=== PATIENT | male | born 1940 | race Caucasian/White ===

== ENCOUNTER → 2016-12-24 | Outpatient (CLI) | payer MEDICARE, BC ==
[~2016-12-24] MED LIST: APIX5TAB PO; ATOR10TA PO; BUPR100T11 PO; BUPR200T2 PO; BUPROPION PO; CAND8TAB PO; GLIP10TA13 PO; INSU100V8 SQ; METF500T4 PO; METO25TA35 PO
[2016-12-24 08:04] LABS: ASPARTATE AMINO TRANSFERASE 17 U/L (15-37); BLOOD UREA NITROGEN 20 mg/dL (7-18)
[2016-12-24 08:11] LABS: PROSTATE SPECIFIC ANTIGEN 0.58 ng/mL (0.00-4.00)
== END | disposition home or self-care (01) ==
LOC: LAB 07:34
PROVIDERS: ATTEND Family Medicine
DX: Z12.5 Encounter for screening for malignant neoplasm of prostate (principal); E11.9 Type 2 diabetes mellitus without complications; E78.00 Pure hypercholesterolemia, unspecified; I10 Essential (primary) hypertension
CPT/HCPCS: 36415; 80053; 80061; 84153

== ENCOUNTER → 2018-11-09 | Outpatient (CLI) | payer MEDICARE, BC ==
[~2018-11-09] MED LIST changes: -CAND8TAB PO; +CAND8TAB10 PO; +METF500T17 PO; -METF500T4 PO
== END | disposition home or self-care (01) ==
LOC: CVU 08:28
PROVIDERS: ATTEND Internal Medicine Cardiovascular Disease
DX: I08.0 Rheumatic disorders of both mitral and aortic valves (principal); E11.9 Type 2 diabetes mellitus without complications; I48.0 Paroxysmal atrial fibrillation; I11.9 Hypertensive heart disease without heart failure
CPT/HCPCS: 93306

== ENCOUNTER 2019-12-18 10:10 | Day surgery (SDC) | payer MEDICARE, BC ==
[~2019-12-18] VITALS: Ht 182.9 cm; Wt 85.9 kg
[2019-12-18 10:40] VITALS: BP 135/78
[2019-12-18 11:08] LABS: BASOPHILS # (AUTO) 0.03 x10^3/uL (0-0.1); BASOPHILS % (AUTO) 1 % (0-1); EOSINOPHILS # (AUTO) 0.17 x10^3/uL (0-0.4); EOSINOPHILS % (AUTO) 3 % (1-7); LYMPHOCYTES # (AUTO) 1.99 x10^3/uL (1-3.4); LYMPHOCYTES % (AUTO) 31 % (22-44); MD NO; MEAN CORPUSCULAR HEMOGLOBIN 29.3 pg (27.5-34.5); MEAN CORPUSCULAR HGB CONC 32.9 g/dL (33.2-36.2); MEAN CORPUSCULAR VOLUME 89.1 fL (81-97); MEAN PLATELET VOLUME 7.5 fL (7.4-10.4); MONOCYTES # (AUTO) 0.48 x10^3/uL (0.2-0.8); MONOCYTES % (AUTO) 7 % (2-9); NEUTROPHILS # (AUTO) 3.83 x10^3/uL (1.8-6.8); NEUTROPHILS % (AUTO) 59 % (42-75); PLATELET COUNT 220 x10^3/uL (130-400); RED BLOOD COUNT 4.85 x10^6/uL (4.38-5.82); RED CELL DISTRIBUTION WIDTH 14.1 % (9.4-14.8)
[2019-12-18 11:13] LABS: ANION GAP 6 mmol/L (5-15); CALCIUM 8.9 mg/dL (8.5-10.1); CHLORIDE 108 mmol/L (98-107); CREATININE 1.03 mg/dL (0.7-1.3)
[2019-12-18] MEDS ORDERED: TADA5TAB13 PO (11:14)
[2019-12-18] MEDS ORDERED: AREDS 2 PO (11:14)
[2019-12-18] MEDS ORDERED: B CO1CAP5 PO (11:14)
[2019-12-18] MEDS ORDERED: MULT-717 PO (11:14)
[2019-12-18] MEDS ORDERED: UBID100C41 PO (11:14)
[2019-12-18] MEDS ORDERED: DILT240C77 PO (11:14)
[2019-12-18] MEDS ORDERED: LOSA50TA14 PO (11:14)
[2019-12-18] MEDS ORDERED: PROPOFOL 10 MG/ML, 20ML ONE (12:01)
== END 2019-12-18 14:17 | disposition home or self-care (01) ==
LOC: CACL 10:10
PROVIDERS: ATTEND Internal Medicine Cardiovascular Disease
DX: I48.92 Unspecified atrial flutter (principal); I48.0 Paroxysmal atrial fibrillation; I10 Essential (primary) hypertension; E11.9 Type 2 diabetes mellitus without complications; E78.2 Mixed hyperlipidemia; Z79.4 Long term (current) use of insulin; Z72.89 Other problems related to lifestyle; Z87.891 Personal history of nicotine dependence; Z79.899 Other long term (current) drug therapy; Z79.01 Long term (current) use of anticoagulants; Z98.890 Other specified postprocedural states
CPT/HCPCS: 36415; 80048; 85025; 92960; J2704

== ENCOUNTER 2020-01-10 06:02 | Observation (INO) | payer MEDICARE, BC ==
[~2020-01-10] VITALS: Ht 185.4 cm; Wt 86.5 kg
[~2020-01-10 06:02] MED LIST changes: +AREDS 2 PO; +B CO1CAP5 PO; +DILT240C77 PO; +LOSA50TA14 PO; +MULT-717 PO; +TADA5TAB13 PO; +UBID100C41 PO
[2020-01-10] MEDS ORDERED: SODIUM CHLORIDE 0.9% 1,000 ML IV SCH (06:19)
[2020-01-10] MEDS ORDERED: CEFAZOLIN PMX 1GM/50ML 50 ML IVPB ONE (06:30)
[2020-01-10 06:32] VITALS: BP 147/89
[2020-01-10] MEDS ORDERED: MIDAZOLAM 1 MG/ML, 5ML ONE (07:11)
[2020-01-10] MEDS ORDERED: LIDOCAINE 1%, 20ML ONE (07:12)
[2020-01-10] MEDS ORDERED: CEFAZOLIN PMX 1GM/50ML 50 ML ONE (07:12)
[2020-01-10] MEDS ORDERED: FENTANYL PF 250 MCG/5ML ONE (07:12)
[2020-01-10] MEDS ORDERED: CEFAZOLIN 1,000 MG ONE (07:12)
[2020-01-10 07:20] LABS: BASOPHILS # (AUTO) 0.04 x10^3/uL (0-0.1); BASOPHILS % (AUTO) 1 % (0-1); EOSINOPHILS % (AUTO) 3 % (1-7); LYMPHOCYTES # (AUTO) 2.17 x10^3/uL (1-3.4); LYMPHOCYTES % (AUTO) 37 % (22-44); MD NO; MEAN CORPUSCULAR HGB CONC 32.7 g/dL (33.2-36.2); MEAN CORPUSCULAR VOLUME 88.6 fL (81-97); MEAN PLATELET VOLUME 7.5 fL (7.4-10.4); MONOCYTES % (AUTO) 7 % (2-9); NEUTROPHILS # (AUTO) 3.06 x10^3/uL (1.8-6.8); NEUTROPHILS % (AUTO) 52 % (42-75); PLATELET COUNT 202 x10^3/uL (130-400); RED CELL DISTRIBUTION WIDTH 14.4 % (9.4-14.8)
[2020-01-10 07:28] LABS: ANION GAP 7 mmol/L (5-15); CALCIUM 8.7 mg/dL (8.5-10.1); CHLORIDE 107 mmol/L (98-107); CREATININE 0.92 mg/dL (0.7-1.3)
[2020-01-10] MEDS ORDERED: LIDOCAINE 2%, 20ML ONE (07:47)
[2020-01-10] MEDS ORDERED: [UNRECOGNIZED DRUG - REMARK] MC PRN (09:00)
[2020-01-10] MEDS: SODIUM CHLORIDE FLUSH 10ML SYR IVF SCH ×2 (09:00→19:56)
[2020-01-10 12:49] VITALS: BP 157/80
[2020-01-10] MEDS ORDERED: ONDANSETRON ODT 4 MG PO PRN (13:00)
[2020-01-10] MEDS ORDERED: ACETAMINOPHEN 325 MG TABLET PO PRN (13:00)
[2020-01-10] MEDS ORDERED: HYDROcodone/APAP 5/325 TABLET PO PRN (13:00)
[2020-01-10] MEDS: ACETAMINOPHEN 325 MG TABLET PO PRN ×2 (13:05→20:18)
[2020-01-10] MEDS: CEFAZOLIN PMX 1GM/50ML 50 ML IVPB SCH ×2 (13:06→18:39)
[2020-01-10 19:23] VITALS: BP 147/70
[2020-01-10] MEDS ORDERED: metFORMIN 500 MG TABLET PO ONE (21:30)
[2020-01-11 01:50] VITALS: BP 158/78
[2020-01-11] MEDS: SODIUM CHLORIDE FLUSH 10ML SYR IVF SCH (08:01)
[2020-01-11] MEDS ORDERED: APIX5TAB PO (08:50)
[2020-01-11 09:19] VITALS: BP 144/74
== END 2020-01-11 09:57 | disposition home or self-care (01) ==
LOC: CACL 06:02 → ORIP 08:58 → 5SO 09:50 → DCLOUNGE 01-11 09:50
PROVIDERS: ADMIT Internal Medicine Cardiovascular Disease; ATTEND Internal Medicine Cardiovascular Disease
DX: I49.5 Sick sinus syndrome (principal); I48.0 Paroxysmal atrial fibrillation; E78.5 Hyperlipidemia, unspecified; Z79.01 Long term (current) use of anticoagulants; I10 Essential (primary) hypertension; E11.9 Type 2 diabetes mellitus without complications; Z79.899 Other long term (current) drug therapy
CPT/HCPCS: 33208; 36415; 71045; 80048; 82962; 85025; 96365; 96366; 99156; 99157; C1779; C1785; C1892; G0378; J0690; J2250; J3010; J3490